=== PATIENT | male | born 1955 | race Caucasian/White ===

== ENCOUNTER 2019-06-22 15:26 | Outpatient (CLI) | payer BC ==
--- NOTE | 2019-06-22 15:49 | RAD ---
EXAM: Chest 2 views: HISTORY: Shortness of breath COMPARISON: None. FINDINGS: There is a normal-sized cardiomediastinal silhouette. There is no evidence of consolidation, mass, or pleural effusion. Degenerative changes in the spine. IMPRESSION: No evidence of acute cardiopulmonary disease
== END 2019-06-22 15:27 | disposition home or self-care (01) ==
LOC: SCSRAD 15:26
PROVIDERS: ATTEND Family Medicine
DX: R06.02 Shortness of breath (principal)
CPT/HCPCS: 71046